=== PATIENT | female | born 1970 | race African-American/Black ===

== ENCOUNTER 2017-02-06 10:28 | Emergency (ER) | payer MEDICAID ==
[~2017-02-06] VITALS: Ht 165.1 cm; Wt 109.0 kg
[~2017-02-06 10:28] MED LIST: AMLO5TAB88 PO; METH500T PO; TRAM50TA3 PO; TRIA1CAP6 PO
[2017-02-06] MEDS ORDERED: TRIA1CAP6 PO (10:44)
[2017-02-06] MEDS ORDERED: DICL50TA7 PO (10:44)
[2017-02-06] MEDS ORDERED: SALS500T19 PO (10:44)
[2017-02-06] MEDS ORDERED: OXYC-100 PO (10:44)
[2017-02-06] MEDS ORDERED: CYM20 PO (10:44)
[2017-02-06] MEDS ORDERED: METH4TAB17 PO (10:44)
[2017-02-06] MEDS ORDERED: BENA20TA3 PO (10:44)
[2017-02-06] MEDS ORDERED: AMLO10TA80 PO (10:44)
[2017-02-06] MEDS ORDERED: IBUP-1510 PO (10:44)
[2017-02-06] MEDS ORDERED: GABA-531 PO (10:44)
[2017-02-06] MEDS ORDERED: LORAZEPAM 1MG TABLET PO ONE (11:30)
[2017-02-06] MEDS ORDERED: DEXAMETHASONE 10MG/ML 1ML VIAL IM ONE (11:30)
[2017-02-06] MEDS ORDERED: KETOROLAC 60MG/2ML VIAL IM ONE (11:30)
[2017-02-06 11:48] LABS: HEMATOCRIT. 44.3 % (36.0-48.0); HEMOGLOBIN. 14.3 g/dL (12.0-16.0); MEAN CORPUSCULAR HEMOGLOBIN 27.5 pg (28.0-32.0); MEAN CORPUSCULAR HGB CONC 32.2 g/dL (31.0-37.0); MEAN CORPUSCULAR VOLUME 85.4 fL (81.0-99.0); PLATELET 246 x1000/uL (130-400); RED BLOOD CELL COUNT 5.19 mill/uL (4.2-5.4); RED CELL DISTRIBUTION WIDTH 13.3 % (11.6-14.6); WHITE BLOOD COUNT 7.2 x1000/uL (4.5-11.0)
[2017-02-06 11:58] LABS: ANION GAP 13; CARBON DIOXIDE 27 mEq/L (21-32); CHLORIDE 103 mEq/L (98-107); INDEX HEMOLYSI 1 (1-3); INDEX ICTERIC 1 (1-4); INDEX LIPEMIC 1 (1-3); UREA NITROGEN BLOOD 19 mg/dL (7-21); eGFR > 60 mL/min (>60)
[2017-02-06 12:40] LABS: PLATELET ESTIMATE NORMAL
[2017-02-06 13:51] VITALS: BP 146/92
== END 2017-02-06 14:00 | disposition home or self-care (01) ==
LOC: ER 10:34
DX: M94.0 Chondrocostal junction syndrome [Tietze] (principal); I10 Essential (primary) hypertension; F17.200 Nicotine dependence, unspecified, uncomplicated; F12.10 Cannabis abuse, uncomplicated; Z90.49 Acquired absence of other specified parts of digestive tract; Z88.2 Allergy status to sulfonamides
CPT/HCPCS: 36415; 71020; 80048; 85007; 85027; 85379; 93005; 96372; 99285; J1100; J1885